=== PATIENT | male | born 2000 | race Asian ===

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

== ENCOUNTER 2022-11-07 02:54 | Emergency (ER) | payer OTHER ==
[~2022-11-07] VITALS: Ht 180.3 cm; Wt 105.0 kg
[2022-11-07 03:30] VITALS: BP 115/68
== END 2022-11-07 03:40 | disposition home or self-care (01) ==
LOC: EMS 02:55
DX: F10.129 Alcohol abuse with intoxication, unspecified (principal); F17.210 Nicotine dependence, cigarettes, uncomplicated; Y90.9 Presence of alcohol in blood, level not specified
CPT/HCPCS: 99283; Z7502